=== PATIENT | male | born 1990 | race Caucasian/White ===

== ENCOUNTER 2020-04-11 16:49 | Emergency (ER) | payer OTHER, SELFPAY ==
[2020-04-11] MEDS ORDERED: Ondansetron ODT 8 MG TAB ONE (17:57)
== END 2020-04-11 18:00 | disposition home or self-care (01) ==
LOC: ERS 16:49
DX: G40.909 Epilepsy, unspecified, not intractable, without status epilepticus (principal); Z79.899 Other long term (current) drug therapy
CPT/HCPCS: 99284; Q0162